=== PATIENT | female | born 1985 | race Caucasian/White ===

== ENCOUNTER 2021-11-26 21:25 | Outpatient (CLI) | payer OTHER ==
[~2021-11-26 21:25] MED LIST: ALBUTEROL1.25 MG/3 INH; SUBUTEX 8 MG TAB8 MG PO; VENTOLIN/PROVE0.5 ML INH
== END 2021-11-26 23:36 | disposition home or self-care (01) ==
LOC: GENOP 21:25
PROVIDERS: Obstetrics & Gynecology
DX: O46.93 Antepartum hemorrhage, unspecified, third trimester (principal); O99.891 Other specified diseases and conditions complicating pregnancy; M54.50 Low back pain, unspecified; R10.9 Unspecified abdominal pain; O99.343 Other mental disorders complicating pregnancy, third trimester; O99.513 Diseases of the respiratory system complicating pregnancy, third trimester; O99.353 Diseases of the nervous system complicating pregnancy, third trimester; F32.A Depression, unspecified; J45.909 Unspecified asthma, uncomplicated; G43.909 Migraine, unspecified, not intractable, without status migrainosus; Z3A.37 37 weeks gestation of pregnancy
CPT/HCPCS: 59025; 80307; 81001

== ENCOUNTER 2021-12-06 15:37 | Inpatient (IN) | payer OTHER ==
[~2021-12-06] VITALS: Ht 154.9 cm; Wt 61.2 kg
[2021-12-08 06:29] LABS: RED BLOOD COUNT 3.53 M/UL (4.00-5.10); WHITE BLOOD COUNT 5.9 K/UL (4.5-11.0)
[2021-12-08] MEDS ORDERED: PROZAC 20 MG CA20 MG GT (07:12)
[2021-12-08] MEDS ORDERED: ABILIFY5 MG PO (07:14)
[2021-12-08] MEDS ORDERED: SUBUTEX 8 MG TAB8 MG SL (07:14)
[2021-12-08] MEDS ORDERED: FERROUS SULFAT325 MG PO (18:08)
[2021-12-08] MEDS ORDERED: COLACE 100MG C100 MG PO (18:08)
[2021-12-08] MEDS ORDERED: IBUPROFEN600 MG PO (18:08)
[2021-12-09 04:47] LABS: HEMOGLOBIN 10.3 gm/dl (12.3-15.3)
== END 2021-12-10 14:02 | disposition home or self-care (01) | DRG 806 ==
LOC: LBRF 15:37 → OB 12-08 05:09
PROVIDERS: Obstetrics & Gynecology; ADMIT Obstetrics & Gynecology
PROC: 10D07Z6 Extraction of Products of Conception, Vacuum, Via Natural or Artificial Opening (ICD-10-PCS; principal; 2021-12-08)
PROC: 10907ZC Drainage of Amniotic Fluid, Therapeutic from Products of Conception, Via Natural or Artificial Opening (ICD-10-PCS; 2021-12-08)
PROC: 3E033VJ Introduction of Other Hormone into Peripheral Vein, Percutaneous Approach (ICD-10-PCS; 2021-12-08)
PROC: 0HQ9XZZ Repair Perineum Skin, External Approach (ICD-10-PCS; 2021-12-08)
PROC: 3E0234Z Introduction of Serum, Toxoid and Vaccine into Muscle, Percutaneous Approach (ICD-10-PCS; 2021-12-08)
DX: O66.0 Obstructed labor due to shoulder dystocia (principal); O98.42 Viral hepatitis complicating childbirth; Z37.0 Single live birth; O99.324 Drug use complicating childbirth; F11.20 Opioid dependence, uncomplicated; Z3A.39 39 weeks gestation of pregnancy; Z20.822 Contact with and (suspected) exposure to COVID-19; B19.20 Unspecified viral hepatitis C without hepatic coma; O99.334 Smoking (tobacco) complicating childbirth; F17.210 Nicotine dependence, cigarettes, uncomplicated; Z82.49 Family history of ischemic heart disease and other diseases of the circulatory system; Z80.1 Family history of malignant neoplasm of trachea, bronchus and lung; Z84.2 Family history of other diseases of the genitourinary system; Z82.5 Family history of asthma and other chronic lower respiratory diseases; Z81.8 Family history of other mental and behavioral disorders; O70.0 First degree perineal laceration during delivery; O69.81X0 Labor and delivery complicated by cord around neck, without compression, not applicable or unspecified; Z23 Encounter for immunization
CPT/HCPCS: 36415; 80307; 81001; 82800; 85014; 85018; 85025; 90715; J2590; J7120; U0003